=== PATIENT | male | born 1995 | race Asian ===

== ENCOUNTER 2017-05-03 08:44 | Outpatient (CLI) | payer MEDICAID | END 2017-05-03 08:45 | disposition home or self-care (01) | LOC: LAB.R 08:44 | PROVIDERS: ATTEND Physician Assistant | DX: K30 Functional dyspepsia (principal) | CPT/HCPCS: 87338 ==

== ENCOUNTER 2019-05-26 08:00 | Outpatient (CLI) | payer MEDICAID ==
[2019-05-26 12:05] LABS: BASOPHILS % (AUTO) 0.6 %; EOSINOPHILS # (AUTO) 0.2 10^3/uL (0.0-0.7); EOSINOPHILS % (AUTO) 3.9 %; HGB - HEMOGLOBIN 16.4 g/dL (14.0-18.0); LYMPHOCYTES % (AUTO) 36.5 %; MEAN CORPUSCULAR HEMOGLOBIN 29.5 pg (27.0-31.0); MEAN CORPUSCULAR HGB CONC 33.7 g/dL (32.0-36.0); MEAN CORPUSCULAR VOLUME 87.6 fL (80.0-94.0); MEAN PLATELET VOLUME 9.6 fL (7.4-11.4); MONOCYTES # (AUTO) 0.5 10^3/uL (0.0-1.0); MONOCYTES % (AUTO) 8.9 %; NEUTROPHILS # (AUTO) 2.7 10^3/uL (1.5-6.6); NEUTROPHILS % (AUTO) 49.9 %; PLT - PLATELET COUNT 253 10^3/uL (130-450); RED BLOOD COUNT 5.56 10^6/uL (4.70-6.10); WHITE BLOOD COUNT 5.4 x10^3/uL (4.8-10.8)
[2019-05-26 12:20] LABS: ALBUMIN 4.3 g/dL (3.2-5.5); ALBUMIN/GLOBULIN RATIO 1.4 (1.0-2.2); ALKALINE PHOSPHATASE 47 IU/L (42-121); ALT ALANINE AMINOTRANSFERASE 20 IU/L (10-60); AST ASPARTATE AMINOTRANSFERASE 16 IU/L (10-42); BILIRUBIN,TOTAL 1.2 mg/dL (0.2-1.0); BUN - BLOOD UREA NITROGEN 14 mg/dL (6-20); CALCIUM 9.3 mg/dL (8.5-10.3); CARBON DIOXIDE - CO2 26 mmol/L (21-32); CHLORIDE 100 mmol/L (101-111); CHOL/HDL RATIO 4.6 (<5.0); CHOLESTEROL 229 mg/dL; CREATININE 0.8 mg/dL (0.6-1.2); GFR - MDRD 118 (>89); GLUCOSE 77 mg/dL (70-100); HDL CHOLESTEROL 50 mg/dL; LDL CHOLESTEROL,CALCULATED 162 mg/dL; LDL/HDL RATIO 3.2 (<3.6); SODIUM 137 mmol/L (135-145); TOTAL PROTEIN 7.4 g/dL (6.7-8.2); VLDL CHOLESTEROL 17 mg/dL
== END 2019-05-26 23:59 | disposition home or self-care (01) ==
LOC: LAB.N 08:00
PROVIDERS: ATTEND Family Medicine
DX: Z00.00 Encounter for general adult medical examination without abnormal findings (principal); E78.5 Hyperlipidemia, unspecified; L20.9 Atopic dermatitis, unspecified
CPT/HCPCS: 36415; 80050; 80061; 83721

== ENCOUNTER 2020-01-11 16:41 | Outpatient (CLI) | payer MEDICAID | END 2020-01-11 23:59 | disposition home or self-care (01) | LOC: LAB.R 16:41 | PROVIDERS: ATTEND Family Medicine | DX: J06.9 Acute upper respiratory infection, unspecified (principal) | CPT/HCPCS: 87275; 87276 ==

== ENCOUNTER 2020-05-28 16:00 | Outpatient (CLI) | payer MEDICAID | END 2020-05-28 16:01 | disposition home or self-care (01) | LOC: LAB 16:00 | PROVIDERS: ATTEND Family Medicine | DX: J06.9 Acute upper respiratory infection, unspecified (principal); Z20.828 Contact with and (suspected) exposure to other viral communicable diseases | CPT/HCPCS: 81599 ==

== ENCOUNTER 2022-01-29 08:00 | Outpatient (CLI) | payer MEDICAID ==
[2022-01-29 12:30] LABS: RHEUMATOID FACTOR NEGATIVE (Negative)
[2022-01-31 14:16] LABS: ANA SCREEN NEGATIVE (NEGATIVE)
== END 2022-01-29 23:59 | disposition home or self-care (01) ==
LOC: LAB.N 08:00
PROVIDERS: ATTEND Physician Assistant
DX: R68.2 Dry mouth, unspecified (principal)
CPT/HCPCS: 36415; 81599; 86038; 86235; 86430

== ENCOUNTER 2022-03-10 08:00 | Outpatient (CLI) | payer MEDICAID ==
--- NOTE | 2022-03-10 14:06 | XRAY Report ---
PROCEDURE: Chest 2 View X-Ray INDICATIONS: Shortness of breath TECHNIQUE: 2 view(s) of the chest. COMPARISON: None. FINDINGS: Surgical changes and devices: None. Lungs and pleura: No pleural effusions or pneumothorax. Lungs are clear. Mediastinum: Mediastinal contours are normal. Heart size is normal. Bones and chest wall: No suspicious bony abnormalities. Soft tissues appear unremarkable. IMPRESSION: No acute cardiopulmonary process demonstrated radiographically. Reviewed by: Helio Lock MD on 03/10/2022 2:04 PM PDT Approved by: Helio Lock MD on 03/10/2022 2:04 PM PDT Station ID: [id number]
== END 2022-03-10 23:59 | disposition home or self-care (01) ==
LOC: DI.N 08:00
PROVIDERS: ATTEND Family Medicine
DX: R06.02 Shortness of breath (principal)

== ENCOUNTER 2024-01-01 09:52 | Outpatient (CLI) | payer MEDICAID ==
[2024-01-01 19:31] LABS: BASOPHILS % (AUTO) 0.7 %; EOSINOPHILS # (AUTO) 0.2 10^3/uL (0.0-0.7); EOSINOPHILS % (AUTO) 3.5 %; HCT - HEMATOCRIT 54.9 % (42.0-52.0); HGB - HEMOGLOBIN 17.5 g/dL (14.0-18.0); LYMPHOCYTES # (AUTO) 1.8 10^3/uL (1.5-3.5); LYMPHOCYTES % (AUTO) 31.8 %; MEAN CORPUSCULAR HEMOGLOBIN 28.1 pg (27.0-31.0); MEAN CORPUSCULAR HGB CONC 31.9 g/dL (32.0-36.0); MEAN CORPUSCULAR VOLUME 88.1 fL (80.0-94.0); MEAN PLATELET VOLUME 9.4 fL (7.4-11.4); MONOCYTES # (AUTO) 0.6 10^3/uL (0.0-1.0); MONOCYTES % (AUTO) 9.8 %; NEUTROPHILS # (AUTO) 3.1 10^3/uL (1.5-6.6); PLT - PLATELET COUNT 303 10^3/uL (130-450); RED BLOOD COUNT 6.23 10^6/uL (4.70-6.10); RED CELL DISTRIBUTION WIDTH 13.4 % (12.0-15.0); WHITE BLOOD COUNT 5.7 x10^3/uL (4.8-10.8)
[2024-01-01 19:59] LABS: ALBUMIN 4.5 g/dL (3.2-5.5); ALBUMIN/GLOBULIN RATIO 1.7 (1.0-2.2); ALKALINE PHOSPHATASE 62 IU/L (42-121); ALT ALANINE AMINOTRANSFERASE 26 IU/L (10-60); AST ASPARTATE AMINOTRANSFERASE 18 IU/L (10-42); BILIRUBIN,TOTAL 0.7 mg/dL (0.2-1.0); BUN - BLOOD UREA NITROGEN 20 mg/dL (6-20); CALCIUM 9.9 mg/dL (8.5-10.3); CARBON DIOXIDE - CO2 33 mmol/L (21-32); CHLORIDE 99 mmol/L (101-111); CHOL/HDL RATIO 5.3 (<5.0); CHOLESTEROL 262 mg/dL; CREATININE 1.1 mg/dL (0.6-1.3); GFR - MDRD 79 (>89); GLUCOSE 86 mg/dL (74-104); HDL CHOLESTEROL 49 mg/dL; LDL CHOLESTEROL,CALCULATED 190 mg/dL; LDL/HDL RATIO 3.9 (<3.6); POTASSIUM 4.1 mmol/L (3.5-4.5); SODIUM 138 mmol/L (135-145); TOTAL PROTEIN 7.1 g/dL (6.4-8.9); TRIGLYCERIDES 117 mg/dL (48-352); VLDL CHOLESTEROL 23 mg/dL
[2024-01-01 20:25] LABS: THYROID STIMULATING HORMONE 0.88 uIU/mL (0.34-5.60)
== END 2024-01-01 09:53 | disposition home or self-care (01) ==
LOC: LAB.N 09:52
PROVIDERS: ATTEND Physician Assistant
DX: E78.5 Hyperlipidemia, unspecified (principal); R03.0 Elevated blood-pressure reading, without diagnosis of hypertension
CPT/HCPCS: 36415; 80050; 80061; 83721

== ENCOUNTER 2024-03-17 10:53 | Outpatient (CLI) | payer MEDICAID ==
[2024-03-17 19:34] LABS: RHEUMATOID FACTOR NEGATIVE (Negative)
== END 2024-03-17 10:54 | disposition home or self-care (01) ==
LOC: LAB.N 10:53
PROVIDERS: ATTEND Physician Assistant
DX: R68.2 Dry mouth, unspecified (principal); H04.129 Dry eye syndrome of unspecified lacrimal gland
CPT/HCPCS: 36415; 86038; 86235; 86430

== ENCOUNTER 2024-05-23 13:41 | Outpatient (CLI) | payer MEDICAID ==
--- NOTE | 2024-05-23 14:38 | Sleep Patient Instructions ---
Sleep Center Visit Summary - Patient Visit Information Reason for Visit: Initial consult for evaluation of sleep disordered breathing and other sleep issues. - Patient Instructions Instructions Attached: Sleep Study Home Monitor Additional Instructions: You will be completing a sleep study, either an in-lab polysomnography (PSG) or home sleep study (HST). You will follow-up in the sleep care office after the sleep study is completed to hear the results and talk about therapy, if needed. You will be called by our office staff to schedule this appointment, but you may contact us with any questions. - Clinic Information Contact: [facility] [address] [place] [address] [email or web address] T: [phone]
--- NOTE | 2024-05-23 14:41 | SLEEP CARE CONSULTATION ---
Information from patient questionnaire entered by Calvin Hutton. I have reviewed and concur with the information entered by Calvin Hutton. This document represents the service I personally performed and the decisions made by me, Katelynn Hanson ARNP. History of Present Illness Service Date and Time: 05/23/2024 1341 Reason for Visit: New patient Chief Complaint: reports: Insomnia, Frequent awakenings at night Date of Onset: 5 plus years Usual bedtime: 3 - 5 AM Time it takes to fall asleep: 0.5 - 1 hour Snores at night: No Observed to quit breathing while asleep: No Sleeps alone due to snoring: No (N/A) Number of times waking at night: ~ 3 times Reasons for waking at night: reports: Other (Noise, unknown reason) Toss, Turn, or Twitch while sleeping: No Recalls having dreams: Yes Usually gets out of bed at: 12 - 4 PM Feels refreshed in the morning: Yes (Occasionally) Morning headache: Yes (Infrequently. Usually resolves in ~ 3 hours) Sleepy or fatigued during the day: Yes Ever fallen asleep while driving: No Takes day naps: Yes (infrequently) Dreams during day naps: Yes Prior sleep studies: No Additional HPI information: I had the pleasure of seeing SUMIT THOMAS today regarding the possibility of him having a sleep disorder. His current complaints are insomnia and frequent night awakenings. He says he is usually staying up all night on his computer. He has some sleep medication to help him go to sleep, one half of a 15 mg Trazadone. He says sometimes it works to help him go to sleep sooner and sometimes it doesn't help go to sleep. He cannot go to sleep unless he takes the Trazadone because his mind is "going". He likes to translate whatever he is reading from [place] to K[place]z because he really enjoys it. He says times goes by really fast for him. He normally goes to sleep between 4-6 AM. He sleeps until 11-1 PM. His mother will wake him up 2 days a week for him to eat lunch. He will usually wake up about 3 times for noise or other unknown reasons. He d oes feel somewhat rested when he gets up for the day. He had tonsils removed as a child because he snored. He has not been told that he still snores or if he has any pauses in breathing when sleeping. - Parasomnia Symptoms Ever been unable to move upon waking from sleep: No Walks in sleep: No Talks in sleep: No Ever acted out dreams in sleep: No Ever felt weak in the knees when startled or emotional: No Bothered by creepy, crawly, restless sensations in legs: No Problems with memory or concentration: No Subjective Initial [place] Sleepiness Scale score: 4 (in 2023) Past Medical History Past Medical History: reports: Hypertension, Other (high cholesterol; eczema) Social History The patient is not employed. Patient is single and lives in [place]. Have you smoked in the past 12 months: No Alcohol use: No Caffeine use: Yes Caffeine amount and frequency: Once a day, every day Family History Family history of sleep disordered breathing: Yes Family Hx Sleep Apnea: Father: Snoring Allergies and Home Medications Known drug allergies: No Drug allergies reviewed: Yes Home medication list reviewed: Yes (as listed) Allergy and home medication list: Allergies No Known Drug Allergies Allergy (Verified 05/22/24 10:10) Medications: blood pressure medication, don't know name high cholesterol medication, don't know name Eucerin cream, topical Hydrocortisone 0.05%, topical Zyrtec Multivitamin Flonase Trazodone Review of Systems Cardiovascular: reports: high blood pressure Respiratory: reports: sputum production Gastrointestinal: reports: nausea. denies: heartburn Neurological: denies: headaches Psychiatric: denies: anxiety, depression Ear/Nose/Throat: reports: sinus problems, dry mouth/throat, tonsillectomy Immunologic: reports: sneezing (/runny nose), rash, itching Physical Exam Vital signs obtained and entered by: Katelynn Hou NP Blood Pressure: 137/99 Cuff size: regular (left arm) Heart Rate: 64 O2 Saturation: 99 Height: 5 ft 4.5 in Weight: 137 lb 3.2 oz Body Mass Index: 23.1 BMI Classification: Normal Neck circumference: 14.75 (inches) Mouth and throat: narrow oropharynx Soft palate: long Hard palate: normal Uvula: normal Uvula visualization: 0% Mallampati Class IV Tongue: enlarged in size with teeth cortez on lateral edges Tonsils: absent bilaterally Neck: normal w/o lymphadenopathy or thyromegaly Heart: regular rate and rhythm Lungs: clear bilaterally Impression and Plan 1. Suspected Obstructive Sleep Apnea-Hypopnea Syndrome, as suggested by a history of morning headache, frequent awakening during the night and unrefreshed sleep. Narrow oropharynx and obesity are common predisposing factors for obstructive sleep apnea-hypopnea syndrome. I recommend proceeding to polysomnography to confirm the diagnosis and to assess severity. If the patient has significant sleep disordered breathing, a manual CPAP titration study will a lso be performed to find the optimal treatment pressure. I informed the patient of what the sleep studies involve and after some discussion, obtained agreement to proceed. The pathophysiology of obstructive sleep apnea-hypopnea syndrome was discussed with the patient and health risks of cardiovascular and cerebrovascular disease if not treated. Risks of drowsy driving discussed in detail and patient advised to avoid long distance driving and to snout puller at the first sign of drowsiness. Patient agreed to plan. * Schedule polysomnography * Avoid long distance driving or driving when feeling sleepy. * Avoid alcohol, sedative and muscle relaxant around bedtime. * Review instructions provided by trained office staff on how to prepare for the sleep study. * Return for follow-up after sleep study completed. Plan: PSG/HST and follow up Visit Type: In Office Time Spent with Patient (minutes): 36 Provider Statement: I spent 100% of the Face to Face Visit with the patient with greater than 50% spent counseling the patient and coordination of care.
[2024-05-23 14:45] VITALS: BP 137/99; O2SAT 99
== END 2024-05-23 13:42 | disposition home or self-care (01) ==
LOC: SC 13:41
PROVIDERS: ATTEND Nurse Practitioner Family
DX: G47.8 Other sleep disorders (principal); R51.9 Headache, unspecified; G47.00 Insomnia, unspecified
CPT/HCPCS: 99203; 99212

== ENCOUNTER 2024-05-30 12:39 | Outpatient (CLI) | payer MEDICAID ==
[2024-05-30 18:16] LABS: BUN - BLOOD UREA NITROGEN 13 mg/dL (6-20); CALCIUM 9.4 mg/dL (8.5-10.3); CARBON DIOXIDE - CO2 30 mmol/L (21-32); CHLORIDE 103 mmol/L (101-111); CHOL/HDL RATIO 3.1 (<5.0); CHOLESTEROL 163 mg/dL; CREATININE 1.1 mg/dL (0.6-1.3); GFR - MDRD 79 (>89); GLUCOSE 94 mg/dL (74-104); HDL CHOLESTEROL 52 mg/dL; LDL CHOLESTEROL,CALCULATED 89 mg/dL; LDL/HDL RATIO 1.7 (<3.6); POTASSIUM 3.6 mmol/L (3.5-4.5); SODIUM 137 mmol/L (135-145); TRIGLYCERIDES 108 mg/dL; VLDL CHOLESTEROL 22 mg/dL
== END 2024-05-30 12:40 | disposition home or self-care (01) ==
LOC: LAB.N 12:39
PROVIDERS: ATTEND Physician Assistant
DX: E78.5 Hyperlipidemia, unspecified (principal)
CPT/HCPCS: 36415; 80048; 80061; 83721

== ENCOUNTER 2024-05-31 20:28 | Outpatient (CLI) | payer MEDICAID | END 2024-05-31 20:29 | disposition home or self-care (01) | LOC: SC 20:28 | PROVIDERS: ATTEND Nurse Practitioner Family | DX: G47.33 Obstructive sleep apnea (adult) (pediatric) (principal) | CPT/HCPCS: 95810 ==

== ENCOUNTER 2024-06-21 13:40 | Outpatient (CLI) | payer MEDICAID ==
--- NOTE | 2024-06-21 15:03 | Sleep Patient Instructions ---
Sleep Center Visit Summary - Patient Visit Information Reason for Visit: Sleep study follow-up - Patient Instructions Instructions Attached: Sleep Study Home Monitor Additional Instructions: You will be completing a sleep study, home sleep study (HST). You will follow- up in the sleep care office after the sleep study is completed to hear the results and talk about therapy, if needed. You will be called by our office staff to schedule this appointment, but you may contact us with any questions. - Clinic Information Contact: [facility] [address] [place] [address] [email or web address] T: [phone]
--- NOTE | 2024-06-21 15:11 | SLEEP CARE CONSULTATION ---
Information from patient questionnaire entered by Sybil Haro. I have reviewed and concur with the information entered by Sybil Haro. This document represents the service I personally performed and the decisions made by , Katelynn Hanson ARNP. History of Present Illness Service Date and Time: 06/21/2024 1340 Initial [place] Sleepiness Scale score: 4 Current [place] Sleepiness Scale score: 5 (06/21/24) Additional HPI information: SUMIT THOMAS returns for follow up and results of the recently performed polysomnography. The sleep study done on 05/31/2024 showed severe obstructive sleep apnea with an average AHI of 40.9 and christiano oxygen saturation of 90%. However patient only got 22 minutes of sleep the night of the study and did not complete the study. He terminated the study early because of insomnia. I explained the pathophysiology behind obstructive sleep apnea. Patient does not drink alcohol. Patient was cautioned about risks of drowsy driving until sleepiness symptoms resolve. Patient does not drive. Sleep Study - Results Type of Sleep Study: Polysomnography (COMPLETED 05/31/24) Prior sleep studies: No Polysomnography/Home Sleep Study results: IMPRESSION: This is an incomplete in-laboratory polysomnography due to premature termination per patients request.. The patient had very poor sleep efficiency. The sleep architecture was abnormal for sleep fragmentation and lack of REM sleep. Respiratory monitoring showed severe obstructive sleep apnea-hypopnea (AHI = 40.9) associated with frequent arousals, oxyhemoglobin desaturation and but not hypoxia (christiano oxygen saturation of 90%). The patient only slept supine during this study (supine AHI = 40.9; non- supine = 0.00). Snore was moderate to loud in intensity. There was no significant periodic leg movement of sleep. Cardiac rhythm was normal sinus rhythm without significant arrhythmia. No abnormal behavior (parasomnia) observed during the night. Allergies and Home Medications Known drug allergies: No Drug allergies reviewed: Yes Home medication list reviewed: Yes (as listed and Zyrtec and Vitamin D) Allergy and home medication list: Allergies No Known Drug Allergies Allergy (Verified 05/22/24 10:10) Home Medications Rosuvastatin Calcium See Rx Instructions .ROUTE .COMPLEX 06/21/24 [History] Review of Systems Review of systems same as previous: Yes (NO CHANGE) Physical Exam Vital signs obtained and entered by: SYBIL Brice MA Blood Pressure: 130/77 (RIGHT ARM) Cuff size: regular Heart Rate: 76 O2 Saturation: 97 Height: 5 ft 4.5 in Weight: 136 lb 12.8 oz Body Mass Index: 23.1 BMI Classification: Normal Impression and Plan 1. Obstructive Sleep Apnea-Hypopnea Syndrome, severe, with lowest oxygen saturation of 90%. Patient's sleep study was a poor study due to short amount of sleep time. He did have some severe episodes during the 22 minutes of sleep but he did not complete the sleep study. He is concerned that his insurance will not cover the sleep study or any treatment until he completes it and would like to repeat the sleep study. I think he should try to do the sleep study at home so he can sleep on his own schedule. I will reorder his sleep study and follow-up with him after that study. I obtained agreement to proceed. The pathophysiology of obstructive sleep apnea-hypopnea syndrome was discussed with the patient and health risks of cardiovascular and cerebrovascular disease if not treated. Risks of drowsy driving discussed in detail and patient advised to avoid long distance driving and to dry chain puller at the first sign of drowsiness. Patient agreed to plan. * Schedule polysomnography/HST * Review instructions provided by trained office staff on how to prepare for the sleep study. * Return for follow-up after sleep study completed. Plan: HST and follow up Visit Type: In Office Time Spent with Patient (minutes): 20 Provider Statement: I spent 100% of the Face to Face Visit with the patient with greater than 50% spent counseling the patient and coordination of care.
[2024-06-21 15:22] VITALS: BP 130/77; O2SAT 97
== END 2024-06-21 13:41 | disposition home or self-care (01) ==
LOC: SC 13:40
PROVIDERS: ATTEND Nurse Practitioner Family
DX: G47.33 Obstructive sleep apnea (adult) (pediatric) (principal)
CPT/HCPCS: 99212; 99213

== ENCOUNTER 2024-06-26 13:37 | Outpatient (CLI) | payer MEDICAID | END 2024-06-26 13:38 | disposition home or self-care (01) | LOC: SC 13:37 | PROVIDERS: ATTEND Nurse Practitioner Family | DX: G47.33 Obstructive sleep apnea (adult) (pediatric) (principal); R09.02 Hypoxemia | CPT/HCPCS: 95806 ==

== ENCOUNTER 2024-07-07 09:07 | Outpatient (CLI) | payer MEDICAID ==
--- NOTE | 2024-07-07 09:54 | Sleep Patient Instructions ---
Sleep Center Visit Summary - Patient Visit Information Reason for Visit: Sleep study follow-up - Patient Instructions Instructions Attached: CPAP Additional Instructions: You are being started on CPAP therapy with pressure setting at 4-15 cmH2O. You will need to call the sleep care office to set up your follow up once you have your CPAP machine to check compliance and response to therapy at that time. You may call the office with any concerns about pressure feeling too low or too much for adjustment, if needed. You should contact DME supplier for any questions or concerns about mask or equipment. Please call office to schedule a follow up appointment in the sleep care office one month after obtaining new device. - Clinic Information Contact: [facility] [address] [place] [address] [email or web address] T: [phone]
--- NOTE | 2024-07-07 09:56 | SLEEP CARE CONSULTATION ---
Information from patient questionnaire entered by Sybil Haro. I have reviewed and concur with the information entered by Sybil Haro. This document represents the service I personally performed and the decisions made by me, Katelynn Hanson ARNP. History of Present Illness Service Date and Time: 07/07/2024906 Initial [place] Sleepiness Scale score: 4 Current [place] Sleepiness Scale score: 4 (07/07/24) Additional HPI information: SUMIT THOMAS returns for follow up and results of the recently performed home sleep study. The sleep study done on 06/27/24 showed moderate obstructive sleep apnea with an average AHI of 20.6 and christiano oxygen saturation of 87%. I explained the pathophysiology behind obstructive sleep apnea. We then spent quite a bit of time discussing different treatment options. For mild obstructive sleep apnea, surgery and oral appliance are alternatives to nasal CPAP therapy but in moderate or severe cases, nasal CPAP is the most effective and reliable treatment. After some discussion, the patient opted to go with the nasal CPAP therapy. Nasal autoCPAP set at 4-15 cmH20 will be ordered with rationale explained. A manual titration study will be ordered if unable to find optimal pressure with office adjustments. I explained how CPAP machine works and what to expect when using the machine. Using CPAP every night in order to get used to it was emphasized. Patient advised to put CPAP mask on before getting into bed so as not to fall asleep without CPAP. To assist acclimation to CPAP use, it could also be used for a short time during day while reading or watching TV. The patient was instructed to call the CPAP supplier to discuss any mechanical problem that may occur. If the mask given is uncomfortable or is difficult to keep on through the night even with adjustment, contact the CPAP supplier as many will replace with another mask style if notified before 30 days. If snoring or perceives is not getting enough air or too much air from the machine, notify this office. Patient does not drink alcohol. Patient was cautioned about risks of drowsy driving until sleepiness symptoms resolve. Patient denies drowsy driving. Sleep Study - Results Type of Sleep Study: Home sleep study (COMPLETED 05/31/24 HST COMPLETED 06/27/24) Prior sleep studies: No Polysomnography/Home Sleep Study results: Physician Impression: The quality of the study is good. The length of the study is adequate (> 240 minutes). Please also see the tabulated and graphic data. 1. Obstructive Sleep Apnea-Hypopnea (ICD-10 G47.33), moderate, with an AHI of 20.6/hr and christiano SaO2 of 87%. During the study, the patient had 38 apneas (37 obstructive, 1 central, 0 mixed) and 68 hypopneas. The longest episode lasted 130.0 seconds. The patient only slept supine during this study. 2. Hypoxemia (ICD-10 R09.02), minimal, with the lowest oxygen saturation of 87 % and 0.9 minutes with SaO2 under 90%. Baseline oxygen saturation was normal (Average oxygen saturation was 95%). Allergies and Home Medications Known drug allergies: No Drug allergies reviewed: Yes Home medication list reviewed: Yes (no changes) Allergy and home medication list: Allergies No Known Drug Allergies Allergy (Verified 07/07/24 09:17) Review of Systems Review of systems same as previous: Yes (NO CHANGE) Physical Exam Vital signs obtained and entered by: SYBIL Brice MA Blood Pressure: 144/91 (LEFT ARM) Cuff size: regular Heart Rate: 69 O2 Saturation: 98 Height: 5 ft 4.5 in Weight: 138 lb 9.6 oz Body Mass Index: 23.4 BMI Classification: Normal Impression and Plan 1. Obstructive Sleep Apnea-Hypopnea Syndrome, moderate, with lowest oxygen saturation of 87%. Obviously this is the cause of the patients symptoms of unrefreshed sleep, and excessive daytime sleepiness. Positive pressure therapy could benefit hypertension. As mentioned above, the patient will be started on nasal autoCPAP therapy with pressure set at 4-15 cmH2O. Compliance guidelines also reviewed. A copy of compliance guidelines will be given for reference at check out. 2. Hypoxemia, minimal, with a christiano oxygen saturation of 87% and 0.9 minutes spent under 90%. The baseline oxygen saturation was normal with an average oxygen saturation of 95%. * Nasal auto CPAP therapy, pressure at 4-15 cm H2O. * Attempt to lose weight. * Avoid alcohol consumption near bedtime. * Avoid supine sleep until using CPAP. * The patient is again cautioned about driving until sleepiness completely resolves. * Return one month after CPAP obtained. I will assess response to therapy and compliance at that time. Prescriptions: Auto CPAP Plan: start CPAP and compliance followup Visit Type: In Office Time Spent with Patient (minutes): 20 Provider Statement: I spent 100% of the Face to Face Visit with the patient with greater than 50% spent counseling the patient and coordination of care.
[2024-07-07 10:04] VITALS: BP 144/91; O2SAT 98
== END 2024-07-07 09:08 | disposition home or self-care (01) ==
LOC: SC 09:07
PROVIDERS: ATTEND Nurse Practitioner Family
DX: G47.33 Obstructive sleep apnea (adult) (pediatric) (principal); R09.02 Hypoxemia
CPT/HCPCS: 99212; 99213